=== PATIENT | female | born 1970 | race Caucasian/White ===

== ENCOUNTER 2022-10-20 21:42 | Emergency (ER) | payer SELFPAY ==
[~2022-10-20] VITALS: Ht 152.4 cm; Wt 80.5 kg
[2022-10-20 21:45] VITALS: BP 119/79
[2022-10-20 23:28] LABS: BASOPHILS % 0.7 % (0.0-2.0); EOSINOPHILS % 3.7 % (0.0-5.0); HEMATOCRIT. 39.4 % (36.0-48.0); HEMOGLOBIN. 13.7 g/dL (12.0-16.0); LYMPHOCYTES % 33.8 % (20.0-50.0); MEAN CORPUSCULAR HEMOGLOBIN 32.8 pg (28.0-32.0); MEAN CORPUSCULAR VOLUME 94.5 fL (81.0-99.0); MEAN PLATELET VOLUME 10.1 fl (7.4-10.4); MONOCYTES % 6.6 % (2.0-8.0); NEUTROPHILS % 55.2 % (40.0-76.0); PLATELET 224 x1000/uL (130-400); RED BLOOD CELL COUNT 4.17 mill/uL (4.2-5.4)
[2022-10-20 23:50] LABS: CHLORIDE 108 mEq/L (98-107)
[2022-10-20 23:57] LABS: HCG SCREEN NEGATIVE
[2022-10-21] MEDS ORDERED: IBUP-2028 MT (02:09)
== END 2022-10-21 03:53 | disposition home or self-care (01) ==
LOC: ER 21:42
DX: S39.91XA Unspecified injury of abdomen, initial encounter (principal); X58.XXXA Exposure to other specified factors, initial encounter; Y93.89 Activity, other specified; Y92.89 Other specified places as the place of occurrence of the external cause; Y99.8 Other external cause status; I10 Essential (primary) hypertension
CPT/HCPCS: 36415; 71045; 74176; 80053; 84703; 85025; 99285